=== PATIENT | female | born 1980 | race African-American/Black ===

== ENCOUNTER 2020-09-28 10:27 | Emergency (ER) | payer MEDICAID, OTHER ==
[~2020-09-28] VITALS: Ht 162.6 cm; Wt 64.0 kg
[~2020-09-28 10:27] MED LIST: CLON0.5T PO
[2020-09-28 10:35] VITALS: BP 140/92
--- NOTE | 2020-09-28 10:38 | NUR ---
Patient ambulated to bed 7, even/steady gait.
--- NOTE | 2020-09-28 10:45 | NUR ---
40 Y/O F BROUGHT IN FROM HOME WITH C/C NOSE PAIN. PT PRESENTS A&OX4 AND AMBULATORY. PT STATES THAT ON MONDAY, 09/25, SHE RECEIVED A COVID TEST AND BEGAN BLEEDING FROM HER NOSE X 1 MINUTE. PT STATES TODAY, SHE WAS UNABLE TO BREATHE FROM HER LEFT NOSTRIL. PT DESCRIBES PAIN 7/10, DULL, INTERMITTENT PAIN. PT DENIES ANY EXPOSURE TO COVID + PATIENTS. PT DENIES DIZZINESS, CHEST PAIN, HEADACHE, N/V, FEVER, CHILLS, COLD-LIKE SYMPTOMS. PT PLACED ONTO CARDIAC MONTIOR. LUNG SOUNDS CTA, RESPIRATIONS EVEN/UNLABORED. BED LOCKED IN LOWEST POSITION, SIDE RAILS X 1, CALL LIGHT IN REACH. PMH/MEDS: DENIES NKA SX: GALLBLADDER REMOVAL
--- NOTE | 2020-09-28 10:50 | NUR ---
Dr. Talley evaluating patient at bedside.
--- NOTE | 2020-09-28 11:00 | NUR ---
PT RESTING AT THIS TIME. HEAD SULFIDE OPERATOR IN PLACE. EQUAL CHEST RISE AND FALL. BED LOCKED IN LOWEST POSITION, SIDE RAILS X 1. ALL PT NEEDS MET AT THIS TIME.
[2020-09-28 11:04] VITALS: BP 138/89
--- NOTE | 2020-09-28 11:04 | NUR ---
Patient discharged with v/s stable. Written and verbal after care instructions given and explained. Patient alert, oriented and verbalized understanding of instructions. Ambulatory with steady gait. All questions addressed prior to discharge. ID band removed. Patient advised to follow up with PMD. Rx of SUDAFED, MOTRIN given. Patient educated on indication of medication including possible reaction and side effects. Opportunity to ask questions provided and answered.
== END 2020-09-28 11:04 | disposition home or self-care (01) ==
LOC: MED 10:27
DX: R09.81 Nasal congestion (principal); J34.89 Other specified disorders of nose and nasal sinuses; Z88.5 Allergy status to narcotic agent; Z79.899 Other long term (current) drug therapy; Z90.49 Acquired absence of other specified parts of digestive tract
CPT/HCPCS: 99282

== ENCOUNTER 2021-02-17 10:54 | Emergency (ER) | payer MEDICAID ==
[~2021-02-17] VITALS: Ht 160 cm; Wt 52.2 kg
[2021-02-17 11:09] VITALS: BP 125/75
[2021-02-17] MEDS ORDERED: SODIUM CHLORIDE FLUSH 10 ML SYR IVF STA (11:30)
[2021-02-17] MEDS ORDERED: ONDANSETRON 4 MG/2 ML VIAL IVP ONE (12:20)
[2021-02-17] MEDS ORDERED: FAMOTIDINE 20 MG/2 ML VIAL IVP ONE (12:20)
[2021-02-17] MEDS ORDERED: NACL 0.9% 1,000 ML IV ONE (12:20)
[2021-02-17 12:37] LABS: BASOPHILS % (AUTO) 0.4 % (0.0-2.0); EOSINOPHILS # (AUTO) 0.2 K/uL (0-0.4); EOSINOPHILS % (AUTO) 2.1 % (0.0-4.0); HEMATOCRIT 40.3 % (36-48); HEMOGLOBIN 13.3 g/dL (12.0-16.0); LYMPHOCYTES # (AUTO) 1.7 K/uL (2.5-16.5); LYMPHOCYTES % (AUTO) 18.5 % (20.5-51.1); MEAN CORPUSCULAR HEMOGLOBIN 32 pg (27-31); MEAN CORPUSCULAR HGB CONC 33 g/dL (33-37); MEAN CORPUSCULAR VOLUME 97.4 fL (80-94); MONOCYTES % (AUTO) 11.3 % (1.7-9.3); NEUTROPHILS # (AUTO) 6.1 K/uL (1.8-7.7); NEUTROPHILS % (AUTO) 67.7 % (42.2-75.2); PLATELET COUNT (AUTO) 269 K/uL (140-450); RED BLOOD CELL COUNT(AUTO) 4.13 MIL/uL (4.20-5.40)
[2021-02-17 12:47] LABS: ALBUMIN 3.8 g/dL (3.4-5.0); ANION GAP 9.1 (8-16); CARBON DIOXIDE 29.7 mmol/L (21-32); CREATININE 1.1 mg/dL (0.6-1.3); POTASSIUM 3.8 mmol/L (3.5-5.1); TOTAL BILIRUBIN 0.3 mg/dL (0.0-1.0)
[2021-02-17] MEDS ORDERED: KETOROLAC 30 MG/ML VIAL IVP ONE (13:45)
[2021-02-17] MEDS ORDERED: FAMO-92 PO (14:08)
[2021-02-17] MEDS ORDERED: ONDA-24 PO (14:08)
[2021-02-17] MEDS ORDERED: ACET-8386 PO (14:08)
[2021-02-17 14:30] VITALS: BP 125/75
[2021-02-17 15:08] LABS: APPEARANCE,URINE CLEAR (CLEAR); BILIRUBIN,URINE NEGATIVE (NEGATIVE); BLOOD, URINE NEGATIVE (NEGATIVE); COLOR,URINE YELLOW (YELLOW); LEUKOCYTE ESTERASE ,URINE NEGATIVE (NEGATIVE); NITRITE, URINE NEGATIVE (NEGATIVE); UGLUCOSE NEGATIVE (NEGATIVE)
== END 2021-02-17 14:32 | disposition home or self-care (01) ==
LOC: MED 10:54
DX: K29.70 Gastritis, unspecified, without bleeding (principal); R11.10 Vomiting, unspecified; M54.42 Lumbago with sciatica, left side; Z90.49 Acquired absence of other specified parts of digestive tract; Z79.899 Other long term (current) drug therapy; Z88.5 Allergy status to narcotic agent
CPT/HCPCS: 36415; 80053; 81003; 81025; 83690; 85025; 96361; 96374; 96375; 99284; J1885; J2405; J3490; J7030

== ENCOUNTER 2021-05-11 07:50 | Emergency (ER) | payer MEDICAID ==
[~2021-05-11] VITALS: Ht 160 cm; Wt 53.5 kg
[~2021-05-11 07:50] MED LIST changes: +ACET-8386 PO; +FAMO-92 PO; +ONDA-24 PO
[2021-05-11 08:19] VITALS: BP 135/86
--- NOTE | 2021-05-11 08:30 | NUR ---
PT W/C TO BED 6
--- NOTE | 2021-05-11 08:38 | NUR ---
41 Y FEMALE WITH c/o left hip pain radiating to left leg and NAUSEA, LLQ abdominal pain X 3 DAYS. DENIES DYSURIA. SEEN HERE FOR SCIATICA & GASTRITIS 02/17/21. FELL X YESTERDAY. PT STATED SHE IS UNABLE TO AMBULATE DUE TO PAIN. UPON ASSESSMENT NO SIGNS OF TRAUMA NOTED. PMH: CHOLECYSTECTOMY, SCIATICA NKA
--- NOTE | 2021-05-11 08:54 | NUR ---
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
--- NOTE | 2021-05-11 08:54 | NUR ---
MONOMER RECOVERY OPERATOR BEDSIDE COLLECTING BLOOD WORK
[2021-05-11 09:24] LABS: BASOPHILS % (AUTO) 0.7 % (0.0-2.0); EOSINOPHILS # (AUTO) 0.1 K/uL (0-0.4); EOSINOPHILS % (AUTO) 2.1 % (0.0-4.0); HEMATOCRIT 35.7 % (36-48); LYMPHOCYTES # (AUTO) 1.7 K/uL (2.5-16.5); LYMPHOCYTES % (AUTO) 28.6 % (20.5-51.1); MEAN CORPUSCULAR HEMOGLOBIN 32 pg (27-31); MEAN CORPUSCULAR HGB CONC 34 g/dL (33-37); MEAN CORPUSCULAR VOLUME 96.2 fL (80-94); MONOCYTES # (AUTO) 0.5 K/uL (0.8-1.0); MONOCYTES % (AUTO) 8.9 % (1.7-9.3); NEUTROPHILS # (AUTO) 3.5 K/uL (1.8-7.7); NEUTROPHILS % (AUTO) 59.7 % (42.2-75.2); PLATELET COUNT (AUTO) 292 K/uL (140-450); RED BLOOD CELL COUNT(AUTO) 3.72 MIL/uL (4.20-5.40); RED CELL DISTRIBUTION WIDTH 13.8 % (11.6-13.7); WHITE BLOOD COUNT (AUTO) 5.8 K/uL (4.8-10.8)
--- NOTE | 2021-05-11 09:25 | NUR ---
dr. bowen bedside evaluating pt
[2021-05-11 09:28] LABS: APPEARANCE,URINE HAZY (CLEAR); BILIRUBIN,URINE NEGATIVE (NEGATIVE); BLOOD, URINE NEGATIVE (NEGATIVE); COLOR,URINE YELLOW (YELLOW); LEUKOCYTE ESTERASE ,URINE NEGATIVE (NEGATIVE); NITRITE, URINE POSITIVE (NEGATIVE); UGLUCOSE NEGATIVE (NEGATIVE)
[2021-05-11] MEDS ORDERED: KETOROLAC 30 MG/ML VIAL IM ONE (09:30)
[2021-05-11 09:32] LABS: ALBUMIN 3.5 g/dL (3.4-5.0); ANION GAP 9.7 (8-16); CARBON DIOXIDE 28.7 mmol/L (21-32); CREATININE 0.8 mg/dL (0.6-1.3); POTASSIUM 3.4 mmol/L (3.5-5.1); TOTAL BILIRUBIN 0.6 mg/dL (0.0-1.0)
[2021-05-11 09:38] LABS: RBC,URINE 0-5 /HPF (0-5); WBC,URINE 0-5 /HPF (0-5)
--- NOTE | 2021-05-11 09:59 | NUR ---
pt taken to xray via gurney Addendum: 05/11/21 at 1001 by [email or web address] pt taken to xray via w/c
--- NOTE | 2021-05-11 10:26 | NUR ---
pt returned to bed 6 via w/c from xray
--- NOTE | 2021-05-11 10:30 | NUR ---
pt currently resting bedside with eyes open and lights on. bed in lowest position with siderail x1 up. vital signs charted and stable. pt stated slight pain relief. will continue to monitor
--- NOTE | 2021-05-11 10:40 | NUR ---
PT TAKEN TO CT VIA [facility]
--- NOTE | 2021-05-11 11:09 | NUR ---
PT RETURNED TO BED [address] [facility] [facility]
[2021-05-11] MEDS ORDERED: traMADol 50 MG TAB PO ONE (12:00)
--- NOTE | 2021-05-11 12:49 | NUR ---
Patient appears to be resting comfortably in bed with eyes open. Vital Signs within normal limits and charted. Respirations even and unlabored. Will continue to monitor pt
[2021-05-11] MEDS ORDERED: TRAM50TA3 PO ×2 (14:51→14:54)
[2021-05-11 15:23] VITALS: BP 130/95
== END 2021-05-11 15:23 | disposition home or self-care (01) ==
LOC: MED 07:50
DX: M25.552 Pain in left hip (principal); Z90.49 Acquired absence of other specified parts of digestive tract; Z79.899 Other long term (current) drug therapy; Z79.891 Long term (current) use of opiate analgesic; Z88.5 Allergy status to narcotic agent
CPT/HCPCS: 36415; 72170; 73502; 74176; 80053; 81001; 81025; 82150; 83690; 85025; 87086; 96372; 99285; J1885

== ENCOUNTER 2021-08-13 05:05 | Emergency (ER) | payer MEDICAID ==
[~2021-08-13] VITALS: Ht 162.6 cm; Wt 57.2 kg
[~2021-08-13 05:05] MED LIST changes: +ONDA-188 PO; -ONDA-24 PO; +TRAM50TA3 PO
[2021-08-13 05:12] VITALS: BP 121/89
--- NOTE | 2021-08-13 05:15 | NUR ---
TO LOBBY A/W BED VIA W/C
--- NOTE | 2021-08-13 05:19 | NUR ---
pt to bed 08.
[2021-08-13] MEDS ORDERED: HYDROcodone/APAP 5/325 MG 1 TAB TAB PO ONE (06:25)
[2021-08-13] MEDS ORDERED: IBUPROFEN 600 MG TAB PO ONE (06:25)
--- NOTE | 2021-08-13 07:13 | NUR ---
Pt report given to Carisa RAMEY. Transfer of care at this time.
[2021-08-13] MEDS ORDERED: ACET-10509 PO ×2 (07:30→07:53)
[2021-08-13] MEDS ORDERED: traMADol 50 MG TAB PO ONE (07:50)
[2021-08-13 08:06] VITALS: BP 110/70
== END 2021-08-13 08:07 | disposition home or self-care (01) ==
LOC: MED 05:05
DX: M25.572 Pain in left ankle and joints of left foot (principal); M54.32 Sciatica, left side; Z88.5 Allergy status to narcotic agent; Z79.899 Other long term (current) drug therapy
CPT/HCPCS: 73610; 99284; Q0092

== ENCOUNTER 2021-09-20 10:08 | Emergency (ER) | payer MEDICAID ==
[~2021-09-20] VITALS: Ht 162.6 cm; Wt 47.2 kg
[~2021-09-20 10:08] MED LIST changes: +ACET-10509 PO
[2021-09-20 10:14] VITALS: BP 126/93
--- NOTE | 2021-09-20 10:22 | NUR ---
PT W/C ASSISTED TO LOBBY.
--- NOTE | 2021-09-20 10:31 | NUR ---
41 Y/O FEMALE C/O GENERAL WEAKNESS, DIZZINESS, VOMTING 8TIMES X1DAY. DENIES FEVER/CHILLS. PMH: SCIATICA ALLERGIES: CODEINE
--- NOTE | 2021-09-20 10:53 | NUR ---
DR. FABIAN WITH PT FOR FURTHER ASSESSMENT.
[2021-09-20 11:24] LABS: BASOPHILS % (AUTO) 0.6 % (0.0-2.0); EOSINOPHILS # (AUTO) 0.2 K/uL (0-0.4); EOSINOPHILS % (AUTO) 2.5 % (0.0-4.0); HEMATOCRIT 38.9 % (36-48); HEMOGLOBIN 13.2 g/dL (12.0-16.0); MEAN CORPUSCULAR HEMOGLOBIN 32 pg (27-31); MEAN CORPUSCULAR HGB CONC 34 g/dL (33-37); MEAN CORPUSCULAR VOLUME 94.2 fL (80-94); MONOCYTES # (AUTO) 0.8 K/uL (0.8-1.0); MONOCYTES % (AUTO) 12.2 % (1.7-9.3); NEUTROPHILS # (AUTO) 3.2 K/uL (1.8-7.7); NEUTROPHILS % (AUTO) 51.7 % (42.2-75.2); PLATELET COUNT (AUTO) 293 K/uL (140-450); RED BLOOD CELL COUNT(AUTO) 4.13 MIL/uL (4.20-5.40); RED CELL DISTRIBUTION WIDTH 13.4 % (11.6-13.7); WHITE BLOOD COUNT (AUTO) 6.1 K/uL (4.8-10.8)
[2021-09-20] MEDS ORDERED: ONDANSETRON 4 MG ODT PO ONE (11:25)
[2021-09-20] MEDS ORDERED: KETOROLAC 60 MG/2 ML VIAL IM ONE (12:05)
--- NOTE | 2021-09-20 12:15 | NUR ---
PT W/C ASSISTED TO ER BED 7
[2021-09-20] MEDS ORDERED: ONDANSETRON 4 MG ODT ONE (12:27)
[2021-09-20 13:34] LABS: ANION GAP 15.5 (8-16); CREATININE 0.9 mg/dL (0.6-1.3); POTASSIUM 3.5 mmol/L (3.5-5.1); TOTAL BILIRUBIN 0.3 mg/dL (0.0-1.0)
[2021-09-20] MEDS ORDERED: ONDA-188 SL (13:54)
[2021-09-20] MEDS ORDERED: NITR100C7 PO (13:54)
[2021-09-20] MEDS ORDERED: TRAM50TA1 PO (13:54)
[2021-09-20 14:12] VITALS: BP 140/95
--- NOTE | 2021-09-20 14:12 | NUR ---
Patient discharged with v/s stable. Written and verbal after care instructions ABOUT UTI AND VOMITING given and explained. Patient alert, oriented and verbalized understanding of instructions. Ambulatory with steady gait. All questions addressed prior to discharge. ID band removed. Patient advised to follow up with PMD. Rx of MACOBID 100MG, ZOFRAN, AND TRAMADOL given. Patient educated on indication of medication including possible reaction and side effects. Opportunity to ask questions provided and answered.
== END 2021-09-20 14:12 | disposition home or self-care (01) ==
LOC: MED 10:08
DX: N39.0 Urinary tract infection, site not specified (principal); R11.2 Nausea with vomiting, unspecified; M79.605 Pain in left leg; Z88.5 Allergy status to narcotic agent; Z79.899 Other long term (current) drug therapy
CPT/HCPCS: 36415; 80053; 81002; 81025; 82150; 83690; 85025; 96372; 99283; J1885; Q0162

== ENCOUNTER 2021-10-28 05:53 | Emergency (ER) | payer MEDICAID ==
[~2021-10-28] VITALS: Ht 162.6 cm; Wt 50.8 kg
[~2021-10-28 05:53] MED LIST changes: +NITR100C7 PO; +ONDA-188 SL; +TRAM50TA1 PO
[2021-10-28 06:00] VITALS: BP 119/72
--- NOTE | 2021-10-28 06:03 | NUR ---
PT TAKEN TO BED 08 VIA W/C.
[2021-10-28] MEDS ORDERED: cephALEXin 500 MG CAP PO ONE (06:10)
[2021-10-28] MEDS ORDERED: KETOROLAC 60 MG/2 ML VIAL IM ONE (06:10)
[2021-10-28] MEDS ORDERED: ONDANSETRON 4 MG ODT PO ONE (06:15)
[2021-10-28] MEDS ORDERED: TRAM50TA1 PO (06:50)
[2021-10-28] MEDS ORDERED: ONDA-188 PO (06:50)
[2021-10-28] MEDS ORDERED: CEPH-588 PO (06:50)
[2021-10-28] MEDS ORDERED: NAPR-1704 PO (06:50)
== END 2021-10-28 07:00 | disposition home or self-care (01) ==
LOC: MED 05:53
DX: L03.116 Cellulitis of left lower limb (principal); Z88.5 Allergy status to narcotic agent; Z79.899 Other long term (current) drug therapy; Z90.49 Acquired absence of other specified parts of digestive tract
CPT/HCPCS: 73610; 90471; 90715; 96372; 99284; J1885; Q0162

== ENCOUNTER 2022-01-26 19:48 | Emergency (ER) | payer MEDICAID ==
[~2022-01-26] VITALS: Ht 162.6 cm; Wt 50.8 kg
[~2022-01-26 19:48] MED LIST changes: +CEPH-588 PO; +NAPR-1704 PO
[2022-01-26 20:13] VITALS: BP 153/92
--- NOTE | 2022-01-26 21:57 | NUR ---
Patient taken to bed 5 by wheel chair.
[2022-01-26] MEDS ORDERED: ONDANSETRON 4 MG ODT PO ONE (22:05)
--- NOTE | 2022-01-26 22:19 | NUR ---
41 bib self for n/v/ dizzy/ falling / legs have beeen giving out x 1 day. pt denies hitting head. pt unable to eat. pt denies fever, cough sciatica in right leg . burning in back. pt takes tramadol for sciatica. sometimes it hurts when driving. pmh: sciatica lmp: january 25.
[2022-01-26] MEDS ORDERED: ONDANSETRON 4 MG/2 ML VIAL IVP ONE (22:55)
[2022-01-26] MEDS ORDERED: KETOROLAC 30 MG/ML VIAL IVP ONE (22:55)
[2022-01-26] MEDS ORDERED: NACL 0.9% 1,000 ML IV ONE (22:55)
--- NOTE | 2022-01-26 22:56 | NUR ---
PT WAS PROVIDED URINE CUP .
[2022-01-26] MEDS ORDERED: CIPR500T4 PO (23:54)
[2022-01-26] MEDS ORDERED: IBUP-2213 PO (23:54)
[2022-01-26] MEDS ORDERED: ONDA8TAB87 PO (23:54)
[2022-01-27 00:45] VITALS: BP 117/68
--- NOTE | 2022-01-27 00:47 | NUR ---
Patient discharged with v/s stable. Written and verbal after care instructions given and explained. Patient alert, oriented and verbalized understanding of instructions. Ambulatory with steady gait. All questions addressed prior to discharge. ID band removed. Patient advised to follow up with PMD. Rx of CIPRO, ZOFRAN AND IBUPROFEN given. Patient educated on indication of medication including possible reaction and side effects. Opportunity to ask questions provided and answered.
--- NOTE | 2022-01-27 00:50 | NUR ---
Chart checked and completed.
== END 2022-01-27 00:47 | disposition home or self-care (01) ==
LOC: MED 19:48
DX: N39.0 Urinary tract infection, site not specified (principal); R11.2 Nausea with vomiting, unspecified; R10.13 Epigastric pain; R42 Dizziness and giddiness; Z88.5 Allergy status to narcotic agent; Z90.49 Acquired absence of other specified parts of digestive tract
CPT/HCPCS: 81002; 81025; 96361; 96374; 96375; 99284; J1885; J2405; J7030; Q0162

== ENCOUNTER 2022-06-29 07:31 | Emergency (ER) | payer MEDICAID, OTHER ==
[~2022-06-29] VITALS: Ht 160 cm; Wt 49.6 kg
[2022-06-29 07:31] VITALS: BP 137/89
[~2022-06-29 07:31] MED LIST changes: +CIPR500T4 PO; +IBUP-2213 PO; +ONDA8TAB87 PO; +TRAM-748 PO; -TRAM50TA1 PO
--- NOTE | 2022-06-29 07:40 | NUR ---
PATIENT AMBULATED TO BED 2. HANDED ON URINE CUP.
[2022-06-29] MEDS ORDERED: MORPHINE SULFATE 4 MG/ML SYR IVP ONE (08:00)
[2022-06-29] MEDS ORDERED: NACL 0.9% 1,000 ML IV ONE (08:00)
[2022-06-29] MEDS ORDERED: ONDANSETRON 4 MG/2 ML VIAL IVP ONE (08:00)
--- NOTE | 2022-06-29 08:02 | NUR ---
42 y/o female bib self, c/o left sided abd pain that radiates to left leg for 2 days. describes it as dull, radiating pain /. also c/o nausea, vomiting, unable to hold down food, reports last bm was yesterday. denies diarrhea, fevers, chills, constipation, dysuria, hematuria. a&ox4, ambulates with steady gait. pmh: denies nka, sensitivity to codeine med: denies
[2022-06-29 08:34] LABS: ALBUMIN 3.2 g/dL (3.4-5.0); ANION GAP 8.2 (8-16); CARBON DIOXIDE 33.4 mmol/L (21-32); CREATININE 0.9 mg/dL (0.6-1.3); POTASSIUM 3.6 mmol/L (3.5-5.1); TOTAL BILIRUBIN 0.6 mg/dL (0.0-1.0)
[2022-06-29 08:45] LABS: BASOPHILS % (AUTO) 0.5 % (0.0-2.0); EOSINOPHILS # (AUTO) 0.1 K/uL (0-0.4); EOSINOPHILS % (AUTO) 1.6 % (0.0-4.0); HEMATOCRIT 36.8 % (36-48); HEMOGLOBIN 11.9 g/dL (12.0-16.0); LYMPHOCYTES # (AUTO) 1.6 K/uL (2.5-16.5); LYMPHOCYTES % (AUTO) 21.6 % (20.5-51.1); MEAN CORPUSCULAR HEMOGLOBIN 31 pg (27-31); MEAN CORPUSCULAR HGB CONC 33 g/dL (33-37); MEAN CORPUSCULAR VOLUME 94.6 fL (80-94); MONOCYTES # (AUTO) 0.6 K/uL (0.8-1.0); MONOCYTES % (AUTO) 8.1 % (1.7-9.3); NEUTROPHILS # (AUTO) 5.1 K/uL (1.8-7.7); NEUTROPHILS % (AUTO) 68.2 % (42.2-75.2); PLATELET COUNT (AUTO) 291 K/uL (140-450); RED BLOOD CELL COUNT(AUTO) 3.89 MIL/uL (4.20-5.40); RED CELL DISTRIBUTION WIDTH 14.1 % (11.6-13.7); WHITE BLOOD COUNT (AUTO) 7.5 K/uL (4.8-10.8)
[2022-06-29] MEDS ORDERED: ONDANSETRON 4 MG/2 ML VIAL ONE (10:04)
[2022-06-29] MEDS ORDERED: MORPHINE SULFATE 4 MG/ML SYR ONE (10:05)
--- NOTE | 2022-06-29 10:07 | NUR ---
pt ambulated with steady gait to bathroom, urine specimen collected at this time.
--- NOTE | 2022-06-29 10:14 | NUR ---
pt taken to ct at this time via samuel
[2022-06-29 11:03] LABS: APPEARANCE,URINE CLOUDY (CLEAR); BILIRUBIN,URINE NEGATIVE (NEGATIVE); BLOOD, URINE NEGATIVE (NEGATIVE); COLOR,URINE YELLOW (YELLOW); LEUKOCYTE ESTERASE ,URINE NEGATIVE (NEGATIVE); NITRITE, URINE POSITIVE (NEGATIVE); UGLUCOSE NEGATIVE (NEGATIVE)
[2022-06-29 11:19] LABS: RBC,URINE NONE SEEN /HPF (0-5)
[2022-06-29] MEDS ORDERED: ONDA-188 PO (12:13)
[2022-06-29] MEDS ORDERED: IBUP-2213 PO (12:13)
[2022-06-29] MEDS ORDERED: NITR100C7 PO (12:13)
[2022-06-29] MEDS ORDERED: BEN10 PO (12:13)
[2022-06-29] MEDS ORDERED: KETOROLAC 30 MG/ML VIAL IVP ONE (12:15)
[2022-06-29] MEDS ORDERED: KETOROLAC 30 MG/ML VIAL IM ONE (12:45)
--- NOTE | 2022-06-29 12:52 | NUR ---
Patient discharged with v/s stable. Written and verbal after care instructions given and explained. Patient alert, oriented and verbalized understanding of instructions. Ambulatory with steady gait. All questions addressed prior to discharge. ID band removed. Patient advised to follow up with PMD. Rx of zofran, macrobid, ibuprofen, bentyl (sent) given. Patient educated on indication of medication including possible reaction and side effects. Opportunity to ask questions provided and answered. copy of labs and imaging given with work note
[2022-06-29 12:53] VITALS: BP 138/98
== END 2022-06-29 12:52 | disposition home or self-care (01) ==
LOC: MED 07:31
DX: N39.0 Urinary tract infection, site not specified (principal)
CPT/HCPCS: 36415; 74176; 76856; 80053; 81001; 81025; 85025; 87086; 93976; 96361; 96372; 96374; 96375; 99285; J1885; J2270; J2405; J7030; Q0092